=== PATIENT | female | born 1985 | race African-American/Black ===

== ENCOUNTER 2018-11-01 23:25 | Inpatient (IN) | payer OTHER ==
[~2018-11-01] VITALS: Ht 160 cm; Wt 94.0 kg
[2018-11-01 23:44] VITALS: BP 134/81; PULSE 70; RESP 18; Ht 160 cm; Wt 94.0 kg
[2018-11-02] MEDS ORDERED: LACTATED RINGER'S 500 ML IV ONE (01:00)
[2018-11-02] MEDS: LACTATED RINGER'S 1,000 ML IV SCH ×3 (02:13→10:51)
[2018-11-02] MEDS: TERBUTALINE 1 MG/ML INJ SC PRN ×4 (02:18→11:40)
[2018-11-02] MEDS ORDERED: BETAMET NA PHOS/AC(6 MG/ML) 2 ML INJ SYG IM SCH (02:30)
[2018-11-02] MEDS ORDERED: METHYLERGONOVINE 0.2 MG INJ IM PRN ×2 (12:00→18:30)
[2018-11-02] MEDS ORDERED: CEFAZOLIN 2 GM/50 ML (PMX) 50 ML IVPB ONE ×2 (12:00→12:30)
[2018-11-02] MEDS ORDERED: MISOPROSTOL 200 MCG TAB PR PRN ×2 (12:00→18:30)
[2018-11-02] MEDS ORDERED: OXYTOCIN 30 UNITS/LR 500 ML IV PRN ×2 (12:00→18:30)
[2018-11-02] MEDS ORDERED: CARBOPROST 250 MCG INJ IM PRN ×2 (12:00→18:30)
[2018-11-02] MEDS ORDERED: ONDANSETRON 4 MG INJ IV STA (12:24)
[2018-11-02] MEDS ORDERED: CITRIC ACID/NA CITRATE 30 ML CUP PO ONE (12:30)
[2018-11-02] MEDS ORDERED: BETAMET NA PHOS/AC(6 MG/ML) 2 ML INJ SYG IM ONE (15:00)
[2018-11-02] MEDS ORDERED: AMPICILLIN 2 GM/NS (PMX) 100 ML IV ONE (16:00)
[2018-11-02] MEDS: NACL 0.9% 3 ML SYG IV SCH (16:09)
[2018-11-02] MEDS ORDERED: morphine SULFATE/PF (10 MG/10 ML) INJ ONE (16:36)
[2018-11-02] MEDS ORDERED: METOCLOPRAMIDE 10 MG INJ ONE (16:36)
[2018-11-02] MEDS ORDERED: OXYTOCIN 10 UNIT INJ ONE (16:36)
[2018-11-02] MEDS ORDERED: IPRATROPIUM (NEB) 0.5 MG/2.5 ML AMP HHN PRN (17:30)
[2018-11-02] MEDS ORDERED: NALBUPHINE HCL (10 MG/1 ML) INJ IV PRN (17:30)
[2018-11-02] MEDS ORDERED: NALOXONE (0.4 MG/ML) INJ IV PRN (17:30)
[2018-11-02] MEDS ORDERED: ONDANSETRON 4 MG INJ IV PRN ×2 (17:30)
[2018-11-02] MEDS ORDERED: LABETALOL HCL 20MG INJ IV PRN (17:30)
[2018-11-02] MEDS ORDERED: TRIMETHOBENZAMIDE 100 MG/ML VIAL IM PRN ×2 (17:30)
[2018-11-02] MEDS ORDERED: MEPERIDINE 25 MG INJ IV PRN (17:30)
[2018-11-02] MEDS ORDERED: ALBUTEROL 0.083% (NEB) 2.5 MG/3 ML AMP HHN PRN (17:30)
[2018-11-02] MEDS ORDERED: hydrALAzine 20 MG INJ IV PRN (17:30)
[2018-11-02] MEDS ORDERED: DIPHENHYDRAMINE 50 MG INJ IV PRN ×2 (17:30)
[2018-11-02] MEDS ORDERED: HYDROmorphONE 1 MG/5 ML IV SYRINGE IV PRN ×3 (17:30)
[2018-11-02] MEDS ORDERED: EPHEDrine 25 MG/5 ML SYG IV PRN (17:30)
[2018-11-02] MEDS ORDERED: morphine 2 MG INJ IV PRN ×2 (17:30)
[2018-11-02] MEDS ORDERED: MIDAZOLAM 1 MG/ML 2 ML INJ IV PRN (17:30)
[2018-11-02] MEDS ORDERED: FENTAnyl 50 MCG/ML VIAL IV PRN ×3 (17:30)
[2018-11-02] MEDS ORDERED: KETAMINE (50 MG/ML) 10 ML VIAL ONE (17:32)
[2018-11-02] MEDS ORDERED: KETOROLAC 30 MG INJ ONE (17:33)
[2018-11-02] MEDS ORDERED: FENTAnyl 50 MCG/ML VIAL ONE (17:38)
[2018-11-02] MEDS ORDERED: OXYTOCIN 30 UNITS/LR 500 ML IV SCH (18:23)
[2018-11-02] MEDS ORDERED: LACTATED RINGER'S 1,000 ML IV SCH (18:23)
[2018-11-02] MEDS ORDERED: METHYLERGONOVINE 0.2 MG TAB PO PRN (18:30)
[2018-11-02] MEDS ORDERED: LANOLIN HPA 1 PKT TOP PRN (18:30)
[2018-11-02] MEDS: AMPICILLIN 1 GM/NS (PMX) 50 ML IV SCH (20:00)
[2018-11-02 22:25] VITALS: BP 156/77; PULSE 62; RESP 18
[2018-11-02] MEDS: SENNA/DOCUSATE NA (8.6MG/50MG) TAB PO SCH (22:30)
[2018-11-03] VITALS (7 sets, daily range): BP systolic 114–147; BP diastolic 70–99; PULSE 60–84; RESP 16–18
[2018-11-03] MEDS: KETOROLAC 30 MG INJ IV PRN ×2 (00:13→10:29)
[2018-11-03] MEDS: AMPICILLIN 1 GM/NS (PMX) 50 ML IV SCH ×2 (04:00)
[2018-11-03] MEDS: NACL 0.9% 3 ML SYG IV SCH (05:37)
[2018-11-03] MEDS: LACTATED RINGER'S 1,000 ML IV SCH ×2 (06:03→14:29)
[2018-11-03] MEDS: SENNA/DOCUSATE NA (8.6MG/50MG) TAB PO SCH ×2 (09:01→20:35)
[2018-11-03] MEDS ORDERED: HYDROCODONE/APAP (5/325) TAB PO PRN (09:30)
[2018-11-03] MEDS: HYDROCODONE/APAP (5/325) TAB PO PRN ×2 (17:51→22:09)
[2018-11-03] MEDS: FERROUS SULFATE (EC) 325 MG TAB PO SCH (20:35)
[2018-11-04 04:00] VITALS: BP 133/77; PULSE 61; RESP 18
[2018-11-04] MEDS: HYDROCODONE/APAP (5/325) TAB PO PRN ×4 (04:52→17:51)
[2018-11-04 08:00] VITALS: BP 128/78; PULSE 62; RESP 18
[2018-11-04] MEDS: FERROUS SULFATE (EC) 325 MG TAB PO SCH ×3 (09:39→21:19)
[2018-11-04] MEDS: SENNA/DOCUSATE NA (8.6MG/50MG) TAB PO SCH ×2 (09:39→21:19)
[2018-11-04 17:00] VITALS: BP 131/75; PULSE 59; RESP 18
[2018-11-04] MEDS ORDERED: MAGNESIUM HYDROXIDE 30ML CUP PO ONE (17:30)
[2018-11-04] MEDS ORDERED: BISACODYL 10 MG SUPP PR ONE (17:30)
[2018-11-04 20:30] VITALS: BP 146/82; RESP 16
[2018-11-04] MEDS: IBUPROFEN 800 MG TAB PO PRN (21:38)
[2018-11-05 04:15] VITALS: BP 153/83; PULSE 60; RESP 17
[2018-11-05] MEDS: IBUPROFEN 800 MG TAB PO PRN (04:17)
[2018-11-05] MEDS ORDERED: BISACODYL 10 MG SUPP PR ONE (06:00)
[2018-11-05] MEDS ORDERED: MAGNESIUM HYDROXIDE 30ML CUP PO ONE (06:00)
[2018-11-05 08:00] VITALS: BP 139/87; PULSE 72; RESP 18
[2018-11-05] MEDS ORDERED: DIPHTH/TET/ACEL PERTUSS (ADULT) 0.5 ML VIAL IM* ONE (09:00)
[2018-11-05] MEDS ORDERED: MEASLES,MUMPS,RUBELLA VACCINE INJ SC* ONE (09:00)
[2018-11-05] MEDS: HYDROCODONE/APAP (5/325) TAB PO PRN (10:53)
[2018-11-05] MEDS: SENNA/DOCUSATE NA (8.6MG/50MG) TAB PO SCH (10:54)
[2018-11-05] MEDS: FERROUS SULFATE (EC) 325 MG TAB PO SCH (10:54)
== END 2018-11-05 11:50 | disposition home or self-care (01) | DRG 783 ==
LOC: OBT 23:25 → L-D 23:25 → OBT 11-02 00:15 → L-D 11-02 00:15 → PP1 11-02 22:25
PROVIDERS: ADMIT Obstetrics & Gynecology; ATTEND Obstetrics & Gynecology
PROC: 0UT70ZZ Resection of Bilateral Fallopian Tubes, Open Approach (ICD-10-PCS; 2018-11-02)
PROC: 10D00Z1 Extraction of Products of Conception, Low, Open Approach (ICD-10-PCS; principal; 2018-11-02 16:30)
DX: O65.5 Obstructed labor due to abnormality of maternal pelvic organs (principal); O60.13X0 Preterm labor second trimester with preterm delivery third trimester, not applicable or unspecified; O34.211 Maternal care for low transverse scar from previous cesarean delivery; Z3A.35 35 weeks gestation of pregnancy; Z37.0 Single live birth; Z30.2 Encounter for sterilization
CPT/HCPCS: 36415; 36600; 76815; 76818; 80048; 80053; 81003; 82803; 84560; 85025; 85384; 85610; 85730; 86592; 86850; 86900; 86901; 86920; 87340; 88302; 99464; G0463; J0690; J0702; J1170; J1885; J2274; J2405; J2590; J2765; J3010; J3105; J7120